=== PATIENT | female | born 1995 | race Caucasian/White ===

== ENCOUNTER 2017-10-05 08:31 | Emergency (ER) | payer OTHER ==
[~2017-10-05] VITALS: Ht 165.1 cm; Wt 51.3 kg
[~2017-10-05 08:31] MED LIST: Ativan0.5 MG PO; IBUP800 PO; Imitrex25 MG PO; OMEP40CA12 PO; ONDA4ODT MM; PARO20 PO; PROC10 PO; PROM25 PO; PROM25S PR; SUCR1 PO; Verotin-Gr Cap1 EACH PO
[2017-10-05] MEDS ORDERED: IBUP800 PO (09:00)
== END 2017-10-05 09:12 | disposition home or self-care (01) ==
LOC: ER 08:31
DX: S60.211A Contusion of right wrist, initial encounter (principal); F41.9 Anxiety disorder, unspecified; G43.909 Migraine, unspecified, not intractable, without status migrainosus; W22.8XXA Striking against or struck by other objects, initial encounter
CPT/HCPCS: 29125; 73110; 99283; L3917

== ENCOUNTER → 2018-01-02 | Outpatient (CLI) | payer OTHER | LOC: LAB SHORT 11:10 → LAB 11:10 | DX: N39.0 Urinary tract infection, site not specified (principal) | CPT/HCPCS: 87086 ==

== ENCOUNTER 2018-08-22 16:48 | Emergency (ER) | payer OTHER ==
[~2018-08-22] VITALS: Ht 157.5 cm; Wt 52.2 kg
[2018-08-22 17:25] LABS: Source, Urine Clean Catch
[2018-08-22 17:32] LABS: BASOPHILS ABSOLUTE AUTO 0.09 K/mm3 (0.00-0.23); BASOPHILS PERCENT AUTO 1 % (0-2); EOSINOPHILS PERCENT AUTO 2 % (0-6); Hematocrit 38.7 % (33.0-51.0); Hemoglobin 12.8 g/dL (11.5-16.0); IMMATURE GRAN ABSOLUTE AUTO 0.06 K/mm3 (0.00-0.10); IMMATURE GRAN PERCENT AUTO 1 % (0-1); LYMPHOCYTES ABSOLUTE AUTO 2.69 K/mm3 (0.84-5.20); LYMPHOCYTES PERCENT AUTO 22 % (21-46); MONOCYTES ABSOLUTE AUTO 0.73 K/mm3 (0.16-1.47); MONOCYTES PERCENT AUTO 6 % (4-13); Mean Corpuscular HGB Conc 33.1 g/dL (31.5-36.5); Mean Corpuscular Volume 94 fL (80-100); Mean Platelet Volume 10.7 fL (9.1-12.4); NEUTROPHILS ABSOLUTE AUTO 8.26 K/mm3 (1.96-9.15); NEUTROPHILS PERCENT AUTO 69 % (41-73); Platelet Count 266 K/mm3 (150-400); RDW Coefficient Variation 12.4 % (11.7-14.2); RDW Standard Deviation 42.8 fL (35.1-46.3); Red Blood Cell Count 4.13 M/mm3 (3.80-5.20); White Blood Cell Count 12.03 K/mm3 (4.00-11.30)
[2018-08-22 17:54] LABS: Bilirubin, Urine Neg (Neg); Glucose Qualitative, Urine Neg (Neg); Ketones, Urine 1+ (Neg); Nitrite, Urine Neg (Neg)
[2018-08-22 18:11] LABS: Alanine Aminotransfer (ALT/SGP 21 U/L (12-78); Albumin, Blood 4.1 g/dL (3.4-5.0); Albumin/Globulin Ratio 1.1 (0.8-1.8); Alk Phos 43 U/L (50-136); Anion Gap 5 mmol/L (6-16); Aspartate Aminotrans (AST/SGOT 12 U/L (12-37); Beta HCG, Quantitative, Serum 6918 mIU/mL (0-3); Bilirubin, Total 0.2 mg/dL (0.1-1.0); Blood Urea Nitrogen 9 mg/dL (8-24); Bun/Creatinine Ratio 15.3 (12.0-20.0); CO2, Blood 27 mmol/L (21-32); Calcium, Blood 8.9 mg/dL (8.5-10.1); Chloride, Blood 104 mmol/L (98-108); Creatinine, Blood 0.59 mg/dL (0.40-1.00); Globulin, Blood 3.6 g/dL (2.2-4.0); Glomerular Filtration Rate >60 (60-); Glucose, Blood 78 mg/dL (70-99); Potassium, Blood 3.8 mmol/L (3.5-5.5); Sodium, Blood 136 mmol/L (136-145); Total Protein, Blood 7.7 g/dL (6.4-8.2)
[2018-08-22 18:13] LABS: Blood, Urine 5+ (Neg); Leukocyte Esterase, Urine 1+ (Neg); Protein, Urine 3+ (Neg); Urobilinogen, Urine NORM (Normal)
[2018-08-22 18:35] LABS: Appearance, Urine Hazy (Clear); Color, Urine Red (P-Yellow)
[2018-08-22 18:37] LABS: Bacteria Many /hpf; Red Blood Cells, Urine TNTC /hpf (0-2); Squamous Epithelial Cells Rare /hpf (Few)
== END 2018-08-22 18:33 | disposition home or self-care (01) ==
LOC: ER 16:48
PROVIDERS: Physician Assistant
DX: O03.9 Complete or unspecified spontaneous abortion without complication (principal); Z79.899 Other long term (current) drug therapy
CPT/HCPCS: 36415; 76801; 76817; 80053; 81001; 84702; 85025; 87086; 99284-25

== ENCOUNTER → 2019-03-07 | Outpatient (CLI) | payer OTHER | END | disposition home or self-care (01) | LOC: LAB EV 10:40 → LAB SHORT 10:40 | DX: J02.9 Acute pharyngitis, unspecified (principal) | CPT/HCPCS: 87081 ==

== ENCOUNTER 2019-07-09 05:00 | Inpatient (IN) | payer OTHER ==
[~2019-07-09] VITALS: Ht 160 cm; Wt 65.0 kg
--- NOTE | 2019-07-09 16:00 | NUR ---
REPORT TO PAULO PAIZ
--- NOTE | 2019-07-09 16:34 | NUR ---
ASSUMED CARE OF PT
[2019-07-10 05:17] LABS: BASOPHILS ABSOLUTE AUTO 0.13 K/mm3 (0.00-0.23); BASOPHILS PERCENT AUTO 1 % (0-2); EOSINOPHILS PERCENT AUTO 1 % (0-6); Hematocrit 37.1 % (33.0-51.0); Hemoglobin 12.4 g/dL (11.5-16.0); IMMATURE GRAN ABSOLUTE AUTO 0.19 K/mm3 (0.00-0.10); IMMATURE GRAN PERCENT AUTO 1 % (0-1); LYMPHOCYTES ABSOLUTE AUTO 3.55 K/mm3 (0.84-5.20); LYMPHOCYTES PERCENT AUTO 18 % (21-46); MONOCYTES ABSOLUTE AUTO 1.29 K/mm3 (0.16-1.47); MONOCYTES PERCENT AUTO 6 % (4-13); Mean Corpuscular HGB Conc 33.4 g/dL (31.5-36.5); Mean Corpuscular Volume 93 fL (80-100); Mean Platelet Volume 11.2 fL (9.1-12.4); NEUTROPHILS ABSOLUTE AUTO 14.83 K/mm3 (1.96-9.15); NEUTROPHILS PERCENT AUTO 74 % (41-73); Platelet Count 268 K/mm3 (150-400); RDW Coefficient Variation 13.5 % (11.7-14.2); RDW Standard Deviation 45.3 fL (35.1-46.3); White Blood Cell Count 20.19 K/mm3 (4.00-11.30)
--- NOTE | 2019-07-10 07:18 | NUR ---
REVIEWED AND AGREE WITH DOCUMENTATION BY RN [email or web address]
[2019-07-10] MEDS ORDERED: IBUP800 PO (11:31)
--- NOTE | 2019-07-10 11:38 | NUR ---
PATIENT REFUSED TO LET RN REVIEWED ALL OF THE MATERNAL DISCHARGED TEACHING. RN PROVIDED PATIENT WITH MATERNAL EDUCATION, PATIENT REVIEWED PACKET AND RN ANSWERED ANY QUESTIONS OR CONCERNS. PATIENT VERBALIZED UNDERSTANDING. BANDS MATCHED. MOTHER LEFT WITH INFANT.
== END 2019-07-10 11:30 | disposition home or self-care (01) | DRG 807 ==
LOC: OBS 05:00 → BC 05:01 → OBS 05:03 → BC 05:34
PROVIDERS: ADMIT Nurse Practitioner Obstetrics & Gynecology
PROC: 10E0XZZ Delivery of Products of Conception, External Approach (ICD-10-PCS; principal; 2019-07-09)
PROC: 10907ZC Drainage of Amniotic Fluid, Therapeutic from Products of Conception, Via Natural or Artificial Opening (ICD-10-PCS; 2019-07-09)
DX: O77.0 Labor and delivery complicated by meconium in amniotic fluid (principal); Z37.0 Single live birth; Z3A.38 38 weeks gestation of pregnancy
CPT/HCPCS: 36415; 85025; 86850; 86900; 86901; J2210; J2405; J2590; J7030; J7120

== ENCOUNTER → 2019-08-12 | Outpatient (CLI) | payer OTHER | END | disposition home or self-care (01) | LOC: LAB SHORT 15:50 → LAB 15:50 | DX: R21 Rash and other nonspecific skin eruption (principal) | CPT/HCPCS: 87070; 87077; 87186; 87205 ==

== ENCOUNTER → 2020-10-19 | Outpatient (CLI) | payer OTHER | LOC: LAB SHORT 15:00 → LAB 15:00 | DX: N39.0 Urinary tract infection, site not specified (principal) | CPT/HCPCS: 87077; 87086; 87186 ==

== ENCOUNTER → 2022-02-06 | Outpatient (CLI) | payer OTHER | END | disposition home or self-care (01) | LOC: LAB SHORT 11:40 → LAB 11:40 | PROVIDERS: Physician Assistant | DX: Z01.419 Encounter for gynecological examination (general) (routine) without abnormal findings (principal) | CPT/HCPCS: G0145 ==

== ENCOUNTER → 2024-08-27 | Outpatient (CLI) | payer OTHER ==
[~2024-08-27] MED LIST changes: +ERYT1OIN LEFTEYE
== END | disposition home or self-care (01) ==
LOC: LAB SHORT 16:42 → LAB 16:42
DX: N39.0 Urinary tract infection, site not specified (principal)
CPT/HCPCS: 87077; 87086; 87186